=== PATIENT | female | born 2000 | race Caucasian/White ===

== ENCOUNTER 2023-12-28 21:48 | Emergency (ER) | payer OTHER ==
[2023-12-28 21:54] VITALS: RESP 18
[2023-12-29] MEDS: BACITRACIN OINT 1 EACH PACKET TOPICAL ONE (00:36)
[2023-12-29 00:37] LABS: Amorphous Sediment,Urine Rare /hpf; Appearance,Urine Clear (Clear); Bilirubin,Urine Negative (Negative); Blood,Urine Negative (Negative); Calcium Oxalate Crystals,Urine Occasional /hpf; Color,Urine Light Yellow; Glucose,Urine (UA) Negative (Negative); Ketones,Urine Negative (Negative); Leukocyte Esterase,Urine Large (Negative); Mucus,Urine Rare /hpf; Nitrite,Urine Negative (Negative); Protein,Urine Negative (Negative); RBC,Urine 3 /hpf (0-5); Specific Gravity,Urine 1.023 (1.001-1.035); Squamous Epithelial Cell,Urine 5 /hpf (0-4); Urobilinogen,Urine <2.0 mg/dL (<2.0); WBC,Urine 32 /hpf (0-5)
--- NOTE | 2023-12-29 01:20 | ED ---
Fall HPI - General Chief Complaint: Fall Stated Complaint: 20 weeks,R Hand/L arm laceration Time Seen by Provider: 12/28/23 22:10 Source: patient Mode of arrival: ambulatory - History of Present Illness Initial Comments: 23-year-old female currently 20 weeks with twins presenting with chief complaint of trip and fall. Patient was running away when she saw skunk when she tripped on uneven ground falling forward. States that she did not hit her stomach but then she fell forward she wanted to be sure that the fetuses were okay. She does have some scrapes to the left knee and right hand. Tetanus is up-to-date, last dose was last year. She has full range of motion of all the extremities, some soreness to the left knee but she is able to ambulate without difficulty. No pelvic pain or vaginal bleeding. No abdominal pain or dysuria. - Related Data Previous Rx's Medication Instructions Recorded Bacitracin Zinc Oint 1 applic TOPICAL BID #28 gm 12/29/23 Cephalexin [Keflex] 500 mg PO Q12HR 7 Days #14 cap 12/29/23 Allergies Allergy/AdvReac Type Severity Reaction Status Date / Time red dye AdvReac Unknown Verified 12/28/23 21:55 shellfish derived [Shellfish] AdvReac Anaphylaxis Verified 12/28/23 21:55 Review of Systems ROS Statement: Those systems with pertinent positive or pertinent negative responses have been documented in the HPI. ROS Other: All systems not noted in ROS Statement are negative. Past Medical History Additional Past Medical History / Comment(s): PCOS History of Any Multi-Drug Resistant Organisms: None Reported Past Surgical History: No Surgical Hx Reported Past Psychological History: No Psychological Hx Reported Smoking Status: Never smoker Past Alcohol Use History: None Reported Past Drug Use History: None Reported General Exam Limitations: no limitations General appearance: alert, in no apparent distress Head exam: Present: atraumatic, normocephalic, normal inspection Eye exam: Present: normal appearance, EOMI Neck exam: Present: normal inspection. Absent: meningismus Respiratory exam: Absent: respiratory distress Extremities exam: Present: full ROM Neurological exam: Present: alert, oriented X3 Psychiatric exam: Present: normal affect, normal mood Skin exam: Present: abrasion Course Vital Signs 12/28/23 12/29/23 21:49 03:39 Temperature 98.1 F 98.2 F Pulse Rate 102 H 91 Respiratory 18 18 Rate Blood Pressure 117/77 120/78 O2 Sat by Pulse 100 100 Oximetry Medical Decision Making - Medical Decision Making Was pt. sent in by a medical professional or institution ([facility], PASTE UP WORKER, urgent care, hospital, or assisted...) When possible be specific @ -No Did you speak to anyone other than the patient for history (EMS, parent, family, police, friend...)? What history was obtained from this source @ -History is supplemented by the patient's due to slight language b arrier Did you review nursing and triage notes (agree or disagree)? Why? @ -I reviewed and agree with nursing and triage notes Were old charts reviewed (outside hosp., previous admission, EMS record, old EKG, old radiological studies, urgent care reports/EKG's, assisted records)? Report findings @ -No old charts were reviewed Differential Diagnosis (chest pain, altered mental status, abdominal pain women, abdominal pain men, vaginal bleeding, weakness, fever, dyspnea, syncope, headache, dizziness, GI bleed, back pain, seizure, CVA, palpatations, mental health, musculoskeletal)? @ -Differential includes uncomplicated injury, threatened , hemorrhage, this is not an all-inclusive list EKG interpreted by me (3pts min.). @ -As above X-rays interpreted by me (1pt min.). @ -None done CT interpreted by me (1pt min.). @ -None done U/S interpreted by me (1pt. min.). @ -Ultrasound shows monochorionic monoamniotic twin live intrauterine gestation. heart rate of fetus today is 152 bpm. heart rate of fetus B is 155 bpm What testing was considered but not performed or refused? (CT, X-rays, U/S, labs)? Why? @ -None What meds were considered but not given or refused? Why? @ -None Did you discuss the management of the patient with other professionals (professionals i.e. [facility], PASTE UP WORKER, lab, RT, psych nurse, social security specialist, cloth pattern maker, teacher, mechanical engineering officer, keycase assembler)? Give summary @ -No Was smoking cessation discussed for >3mins.? @ -No Was critical care preformed (if so, how long)? @ -No Were there social determinants of health that impacted care today? How? (Homelessness, low income, unemployed, alcoholism, drug addiction, transportation, low edu. Level, literacy, decrease access to med. care, prison, rehab)? @ -No Was there de-escalation of care discussed even if they declined (Discuss DNR or withdrawal of care, Hospice)? DNR status @ -No What co-morbidities impacted this encounter? (DM, HTN, Smoking, COPD, CAD, Cancer, CVA, ARF, Chemo, Hep., AIDS, mental health diagnosis, sleep apnea, morbid obesity)? @ -None Was patient admitted / discharged? Hospital course, mention meds given and route, prescriptions, significant lab abnormalities, going to OR and other pertinent info. @ -23-year-old female currently 20 weeks with twins presenting for evaluation post trip and fall. She fell forward onto her front side, did not fall onto her abdomen but wanted to be evaluated. She does have some abrasions to the extremities. She is able to ambulate without difficulty. Her tetanus is up-to-date. Provided with bacitracin for her abrasions. Urine shows 32 WBCs, will be treated with Keflex for asymptomatic bacteria. Ultrasound shows twin intrauterine live gestation. Patient and are educated on today's findings. Follow-up with MANAGER OF PATIENT, they have an upcoming appointment scheduled. Discharged. Follow-up with PCP. Report back to ER with any new or worsening symptoms. Discussed return parameters and answered all questions. Patient conveyed verbal understanding and agreed to the plan. I discussed this case in detail with my attending Dr. Delgado Undiagnosed new problem with uncertain prognosis? @ -No Drug Therapy requiring intensive monitoring for toxicity (Heparin, Nitro, Insulin, Cardizem)? @ -No Were any procedures done? @ -No Diagnosis/symptom? @ -Twin , asymptomatic bacteria, abrasion Acute, or Chronic, or Acute on Chronic? @ -Acute Uncomplicated (without systemic symptoms) or Complicated (systemic symptoms)? @ -Uncomplicated Side effects of treatment? @ -No Exacerbation, Progression, or Severe Exacerbation? @ -No Poses a threat to life or bodily function? How? (Chest pain, [place], [place], pneumonia, PE, COPD, DKA, ARF, appy, cholecystitis, CVA, Diverticulitis, Homicidal, Suicidal, threat to staff... and all critical care pts) @ -Unlikely - Lab Data Lab Results 12/28/23 Range/Units 22:30 Urine Color Light Yellow Urine Appearance Clear (Clear) Urine pH 6.0 (5.0-8.0) Ur Specific [place] 1.023 (1.001-1.035) Urine Protein Negative (Negative) Urine Glucose (UA) Negative (Negative) Urine Ketones Negative (Negative) Urine Blood Negative (Negative) Urine Nitrite Negative (Negative) Urine Bilirubin Negative (Negative) Urine Urobilinogen <2.0 (<2.0) mg/dL Ur Leukocyte Esterase Large H (Negative) Urine RBC 3 (0-5) /hpf Urine WBC 32 H (0-5) /hpf Ur Squamous Epith Cells 5 H (0-4) /hpf Calcium Oxalate Crystal Occasional H (None) /hpf Amorphous Sediment Rare H (None) /hpf Urine Mucus Rare H (None) /hpf Disposition Clinical Impression: , twin, Abrasion, Asymptomatic bacteriuria Disposition: HOME SELF-CARE Condition: Good Additional Instructions: Follow up with your PCP and MANAGER OF PATIENT. Report back to ER with any new or worsening symptoms. Take medication as prescribed. Prescriptions: Bacitracin Zinc Oint 1 applic TOPICAL BID #28 gm Cephalexin [Keflex] 500 mg PO Q12HR 7 Days #14 cap Is patient prescribed a controlled substance at d/c from ED?: No Referrals: None,Stated [Primary Care Provider] - 1-2 days Time of Disposition: 03:31
--- NOTE | 2023-12-29 03:17 | US ---
EXAM: US Second or Third Trimester , Transabdominal CLINICAL HISTORY: ITS.REASON US Reason: fall TECHNIQUE: Real-time transabdominal obstetrical ultrasound of the maternal pelvis and a second or third trimester with image documentation. COMPARISON: None FINDINGS: Monochorionic monoamniotic twin live intrauterine gestation. The placenta is anterior without evidence of previa. The amniotic fluid index is within normal limits, measuring 14.58 cm. The cervix is long and closed, measuring 3.0 cm. Gestational age by prior dating at 19 weeks 6 days, which corresponds to an SANJU of 05/17/2024. FETUS A: Cephalic presentation on maternal left. BPD 4.62 cm, 20 weeks 0 days HC 16.39 cm, 19 weeks 1 day AC 14.15 cm, 19 weeks 4 days FL 2.87 cm, 18 weeks 6 days By this ultrasound, estimated gestational age is 19 weeks 1 day, corresponding to a sonographic SANJU of 05/22/2024. Estimated weight is 279.83 g +/-41.97 g which is at the 15th percentile. HC/AC ratio is 1.16 (normal range for this fetus is 1.09-1.26). FHR is 152 bpm. FETUS B: Breech presentation on maternal right. BPD 4.32 cm, 19 weeks 0 days HC 15.81 cm, 18 weeks 5 days AC 14.23 cm, 19 weeks 4 days FL 2.73 cm, 18 weeks 2 days By this ultrasound, estimated gestational age is 18 weeks 5 days, corresponding to a sonographic SANJU of 05/25/2024. Estimated weight is 267.38 g +/-40.11 g which is at the 9 percentile. HC/AC ratio is 1.11 (normal range for this fetus is 1.09-1.26). FHR is 155 bpm. IMPRESSION: Monochorionic monoamniotic twin live intrauterine gestation. heart rate of fetus A, is 152 bpm. heart rate of fetus B is 155 bpm.
[2023-12-29 03:41] VITALS: BP 120/78; PULSE 91; TEMP 98.2
== END 2023-12-29 03:40 | disposition home or self-care (01) ==
LOC: EC 21:48
CPT/HCPCS: 76805; 76810; 81001; 87086; 99284

== ENCOUNTER 2024-08-08 02:45 | Emergency (ER) | payer OTHER ==
[2024-08-08] MEDS: LACTATED RINGERS 1,000 ML IV ONE (03:19)
[2024-08-08] MEDS: ONDANSETRON 4 MG/2 ML VIAL IVP STA (03:19)
[2024-08-08] MEDS: HYDROmorphone 0.5 MG/0.5 ML SYRINGE IVP STA ×2 (03:19→08:08)
[2024-08-08 03:33] LABS: Basophils # (A) 0.06 10*3/uL (0.00-0.10); Basophils % (A) 0.6 %; Eosinophils # (A) 1.61 10*3/uL (0.04-0.35); Eosinophils % (A) 16.9 %; HCT 42.1 % (37.2-46.3); HGB 14.3 g/dL (12.0-15.0); Lymphocytes # (A) 4.18 10*3/uL (0.90-5.00); MCH 29.7 pg (27.0-32.0); MCV 87.3 fL (80.0-97.0); Mean Platelet Volume 9.2 fL (9.5-12.2); Monocytes # (A) 0.72 10*3/uL (0.20-1.00); Monocytes % (A) 7.6 %; Neutrophils # (A) 2.92 10*3/uL (1.80-7.70); Neutrophils % (A) 30.7 %; Platelet Count 237 10*3/uL (140-440); RBC 4.82 10*6/uL (4.10-5.20); WBC 9.51 10*3/uL (4.50-10.00)
[2024-08-08 03:37] LABS: Appearance,Urine Clear (Clear); Bilirubin,Urine Negative (Negative); Blood,Urine Negative (Negative); Color,Urine Yellow; Glucose,Urine (UA) Negative (Negative); Ketones,Urine Negative (Negative); Leukocyte Esterase,Urine Negative (Negative); Nitrite,Urine Negative (Negative); PH, Urine 5.5 (5.0-8.0); Protein,Urine Negative (Negative); Specific Gravity,Urine 1.029 (1.001-1.035); Urobilinogen,Urine <2.0 mg/dL (<2.0)
--- NOTE | 2024-08-08 03:38 | ED ---
General Adult HPI - General Source: patient, RN notes reviewed, old records reviewed Limitations: no limitations <Zaid Sanchez - Last Filed: 08/08/24 05:08> <Celso Jacome - Last Filed: 08/08/24 08:09> - General Chief complaint: Abdominal Pain Stated complaint: Abd pain Time Seen by Provider: 08/08/24 02:52 - History of Present Illness Initial comments: 24-year-old female presenting for evaluation of epigastric abdominal pain and nausea vomiting. Patient had 1 total episode of vomiting prior to arrival. She did report eating Occitan food earlier in the day. She states she has had some intermittent epigastric abdominal pain for the past 1 month. No prior history of gallbladder issues. She does not drink alcohol. (Zaid Sanchez) - Related Data Previous Rx's Medication Instructions Recorded Bacitracin Zinc Oint 1 applic TOPICAL BID #28 gm 12/29/23 Cephalexin [Keflex] 500 mg PO Q12HR 7 Days #14 cap 12/29/23 Allergies Allergy/AdvReac Type Severity Reaction Status Date / Time red dye AdvReac Unknown Verified 08/08/24 02:46 shellfish derived [Shellfish] AdvReac Anaphylaxis Verified 08/08/24 02:46 Review of Systems ROS Other: All systems not noted in ROS Statement are negative. <Zaid Sanchez - Last Filed: 08/08/24 05:08> ROS Other: All systems not noted in ROS Statement are negative. <Celso Jacome - Last Filed: 08/08/24 08:09> ROS Statement: Those systems with pertinent positive or pertinent negative responses have been documented in the HPI. Past Medical History Additional Past Medical History / Comment(s): PCOS History of Any Multi-Drug Resistant Organisms: None Reported Past Surgical History: No Surgical Hx Reported Past Psychological History: No Psychological Hx Reported Smoking Status: Never smoker Past Alcohol Use History: None Reported Past Drug Use History: None Reported <Zaid Sanchez - Last Filed: 08/08/24 05:08> General Exam Limitations: no limitations General appearance: alert, in no apparent distress Head exam: Present: atraumatic, normocephalic Eye exam: Present: normal appearance, PERRL ENT exam: Present: normal exam Neck exam: Present: normal inspection. Absent: tenderness, meningismus Respiratory exam: Present: normal lung sounds bilaterally. Absent: respiratory distress, wheezes Cardiovascular Exam: Present: regular rate, normal rhythm GI/Abdominal exam: Present: soft, tenderness (Very minimal epigastric tenderness, no right upper quadrant tenderness.). Absent: distended Neurological exam: Present: alert, oriented X3, CN II-XII intact. Absent: motor sensory deficit Psychiatric exam: Present: normal affect, normal mood Skin exam: Present: warm, dry, intact <Zaid Sanchez - Last Filed: 08/08/24 05:08> Course <Zaid Sanchez - Last Filed: 08/08/24 05:08> Vital Signs 08/08/24 08/08/24 08/08/24 02:47 03:35 05:32 Temperature 97.7 F Pulse Rate 82 74 71 Respiratory 18 18 18 Rate Blood Pressure 130/86 116/84 107/69 O2 Sat by Pulse 99 100 94 L Oximetry 08/08/24 07:34 Temperature Pulse Rate 63 Respiratory 18 Rate Blood Pressure 102/66 O2 Sat by Pulse 97 Oximetry - Reevaluation(s) Reevaluation #1: 08/08/24 04:20 Reevaluated, pain improved, no further vomiting. (Zaid Sanchez) Medical Decision Making - Lab Data Result diagrams: 08/08/24 03:14 08/08/24 03:14 <Zaid Sanchez - Last Filed: 08/08/24 05:08> - Lab Data Result diagrams: 08/08/24 03:14 08/08/24 03:14 <Celso Jacome - Last Filed: 08/08/24 08:09> - Medical Decision Making Was pt. sent in by a medical professional or institution (, PA, RUG DESIGNER, urgent care, hospital, or fci...) When possible be specific @ -No Did you speak to anyone other than the patient for history (EMS, parent, family, police, friend...)? What history was obtained from this source @ -No Did you review nursing and triage notes (agree or disagree)? Why? @ -I reviewed and agree with nursing and triage notes Were old charts reviewed (outside hosp., previous admission, EMS record, old EKG, old radiological studies, urgent care reports/EKG's, fci records)? Report findings @ -No old charts were reviewed Differential Abdominal Pain Women: Appendicitis, Cholecystitis, diverticulosis, ischemic bowel, pancreatitis, hepatitis, UTI, gastroenteritis, AAA, incarcerated hernia, bowel obstruction, constipation, inflammatory bowel, hepatitis, peptic ulcer disease, splenic infarction, perforated viscus, vulvitis, ovarian torsion, PID, kidney stone, placenta abruption, this is not meant to be an all-inclusive list EKG interpreted by me (3pts min.). @ -As above X-rays interpreted by me (1pt min.). @ -None done CT interpreted by me (1pt min.). @ -None done U/S interpreted by me (1pt. min.). @ -Ultrasound of the right upper quadrant has been ordered, results pending What testing was considered but not performed or refused? (CT, X-rays, U/S, labs)? Why? @ -None What meds were considered but not given or refused? Why? @ -None Did you discuss the management of the patient with other professionals (professionals i.e. , PA, RUG DESIGNER, lab, RT, psych nurse, psychologist social, morgue attendant, teacher, artillery officer, medical case worker)? Give summary @ -No Was smoking cessation discussed for >3mins.? @ -No Was critical care preformed (if so, how long)? @ -No Were there social determinants of health that impacted care today? How? (Homelessness, low income, unemployed, alcoholism, drug addiction, transportation, low edu. Level, literacy, decrease access to med. care, long term, rehab)? @ -No Was there de-escalation of care discussed even if they declined (Discuss DNR or withdrawal of care, Hospice)? DNR status @ -No What co-morbidities impacted this encounter? (DM, HTN, Smoking, COPD, CAD, Canc er, CVA, ARF, Chemo, Hep., AIDS, mental health diagnosis, sleep apnea, morbid obesity)? @ -None Was patient admitted / discharged? Hospital course, mention meds given and route, prescriptions, significant lab abnormalities, going to OR and other pertinent info. @ -24-year-old female with epigastric pain, nausea vomiting. Laboratory test including CBC, CMP, lipase, urinalysis is unremarkable. Ultrasound has been ordered to evaluate the gallbladder and biliary system. These results are pending. Patient care signed out at shift change to Dr. Jacome awaiting results and reevaluation. (Zaid Sanchez) Patient presents with abdominal pain. This is associate with nausea and vomiting. She has been having on and off again epigastric abdominal pain for the last 1 month and somewhat worsened yesterday with 1 episode of emesis. Presented for further evaluation. Signed out to me pending results of ultrasound. Laboratory studies so far all within acceptable limits. Gallbladder ultrasound as interpreted by myself negative for any obvious acute process. No evidence of cholecystitis or cholelithiasis. I updated the patient. She expressed understanding. She will be discharged home at this time. Given GI follow-up. Strict return precautions discussed. Patient given starter pack of Tylenol 3 as well as Zofran. We did review the risks for both medications and she expressed understanding. She will not breast-feed while on these medications. Recommended at least a 1 day washout period where she pumps and dump the breastmilk after completing medications. She was in agreement this plan. Strict return precautions discussed. Recommended obtaining [id number] Tums for additional acid reflux pain control. I instructed the patient to follow up with their PCP in the next 1-3 days. I provided contact information for follow up with gastroenterology. I explained that the patient should return to the emergency department if they experience any worsening symptoms. Strict return precautions were discussed with the patient. The patient expressed understanding of these instructions. I answered all questions that the patient had. The patient was discharged home in good condition with their prescriptions and follow up information. Diagnosis/symptom? @ -Abdominal pain of unknown etiology, nausea and vomiting Acute, or Chronic, or Acute on Chronic? @ -Acute Uncomplicated (without systemic symptoms) or Complicated (systemic symptoms)? @ -Uncomplicated Side effects of treatment? @ -None Exacerbation, Progression, or Severe Exacerbation] @ -No Poses a threat to life or bodily function? @ -Unlikely at this time (Celso Jacome) - Lab Data Lab Results 08/08/24 08/08/24 08/08/24 Range/Units 03:14 03:14 03:14 WBC 9.51 (4.50-10.00) 10*3/uL RBC 4.82 (4.10-5.20) 10*6/uL Hgb 14.3 (12.0-15.0) g/dL Hct 42.1 (37.2-46.3) % MCV 87.3 (80.0-97.0) fL MCH 29.7 (27.0-32.0) pg MCHC 34.0 (32.0-37.0) g/dL Plt Count 237 (140-440) 10*3/uL MPV 9.2 L (9.5-12.2) fL Immature Gran % (Auto) 0.2 % Neutrophils % 30.7 % Lymphocytes % 44.0 % Monocytes % 7.6 % Eosinophils % 16.9 % Basophils % 0.6 % Immature Gran # 0.02 (0.00-0.04) 10*3/uL Neutrophils # 2.92 (1.80-7.70) 10*3/uL Lymphocytes # 4.18 (0.90-5.00) 10*3/uL Monocytes # 0.72 (0.20-1.00) 10*3/uL Eosinophils # 1.61 H (0.04-0.35) 10*3/uL Basophils # 0.06 (0.00-0.10) 10*3/uL PT 10.4 (10.0-12.5) sec INR 0.9 (<1.2) APTT 24.3 (22.0-30.0) sec Sodium 141 (137-145) mmol/L Potassium 3.9 (3.5-5.1) mmol/L Chloride 106 (98-107) mmol/L Carbon Dioxide 24 (22-30) mmol/L Anion Gap 11 mmol/L BUN 13 (7-17) mg/dL Creatinine 0.63 (0.52-1.04) mg/dL Est GFR (CKD-EPI)AfAm >90 (>60 ml/min/1.73 sqM) Est GFR (CKD-EPI)NonAf >90 (>60 ml/min/1.73 sqM) Glucose 98 (74-99) mg/dL Plasma Lactic Acid Yang (0.7-2.0) mmol/L Calcium 9.4 (8.4-10.2) mg/dL Total Bilirubin 0.5 (0.2-1.3) mg/dL AST 27 (14-36) U/L ALT 30 (4-34) U/L Alkaline Phosphatase 100 (38-126) U/L Total Protein 7.3 (6.3-8.2) g/dL Albumin 4.4 (3.5-5.0) g/dL Amylase 102 (30-110) U/L Lipase 111 (23-300) U/L Urine Color Urine Appearance (Clear) Urine pH (5.0-8.0) Ur Specific [place] (1.001-1.035) Urine Protein (Negative) Urine Glucose (UA) (Negative) Urine Ketones (Negative) Urine Blood (Negative) Urine Nitrite (Negative) Urine Bilirubin (Negative) Urine Urobilinogen (<2.0) mg/dL Ur Leukocyte Esterase (Negative) Urine HCG, Qual (Not Detectd) 08/08/24 08/08/24 08/08/24 Range/Units 03:14 03:20 03:20 WBC (4.50-10.00) 10*3/uL RBC (4.10-5.20) 10*6/uL Hgb (12.0-15.0) g/dL Hct (37.2-46.3) % MCV (80.0-97.0) fL MCH (27.0-32.0) pg MCHC (32.0-37.0) g/dL Plt Count (140-440) 10*3/uL MPV (9.5-12.2) fL Immature Gran % (Auto) % Neutrophils % % Lymphocytes % % Monocytes % % Eosinophils % % Basophils % % Immature Gran # (0.00-0.04) 10*3/uL Neutrophils # (1.80-7.70) 10*3/uL Lymphocytes # (0.90-5.00) 10*3/uL Monocytes # (0.20-1.00) 10*3/uL Eosinophils # (0.04-0.35) 10*3/uL Basophils # (0.00-0.10) 10*3/uL PT (10.0-12.5) sec INR (<1.2) APTT (22.0-30.0) sec Sodium (137-145) mmol/L Potassium (3.5-5.1) mmol/L Chloride (98-107) mmol/L Carbon Dioxide (22-30) mmol/L Anion Gap mmol/L BUN (7-17) mg/dL Creatinine (0.52-1.04) mg/dL Est GFR (CKD-EPI)AfAm (>60 ml/min/1.73 sqM) Est GFR (CKD-EPI)NonAf (>60 ml/min/1.73 sqM) Glucose (74-99) mg/dL Plasma Lactic Acid Yang 1.3 (0.7-2.0) mmol/L Calcium (8.4-10.2) mg/dL Total Bilirubin (0.2-1.3) mg/dL AST (14-36) U/L ALT (4-34) U/L Alkaline Phosphatase (38-126) U/L Total Protein (6.3-8.2) g/dL Albumin (3.5-5.0) g/dL Amylase (30-110) U/L Lipase (23-300) U/L Urine Color Yellow Urine Appearance Clear (Clear) Urine pH 5.5 (5.0-8.0) Ur Specific [place] 1.029 (1.001-1.035) Urine Protein Negative (Negative) Urine Glucose (UA) Negative (Negative) Urine Ketones Negative (Negative) Urine Blood Negative (Negative) Urine Nitrite Negative (Negative) Urine Bilirubin Negative (Negative) Urine Urobilinogen <2.0 (<2.0) mg/dL Ur Leukocyte Esterase Negative (Negative) Urine HCG, Qual Not Detected (Not Detectd) Disposition <Zaid Sanchez - Last Filed: 08/08/24 05:08> Is patient prescribed a controlled substance at d/c from ED?: Yes When asked, does pt state using other controlled substances?: No If prescribed controlled substance>3 days was MAPS reviewed?: Prescribed <3 Days If opioid is for acute pain is fill amount 7 days or less?: Yes If Rx opioid, was Start Talking consent form obtained?: Yes Time of Disposition: 08:09 <Ceslo Jacome - Last Filed: 08/08/24 08:09> Clinical Impression: Nausea and vomiting, Abdominal pain of unknown etiology Disposition: HOME SELF-CARE Condition: Good Instructions (If sedation given, give patient instructions): Abdominal Pain (ED), Acute Nausea and Vomiting (ED) Referrals: None,Stated [Primary Care Provider] - 1-2 days Lesli Scruggs MD [STAFF PHYSICIAN] - 1-2 days Forms: [facility] PCPs
[2024-08-08 03:47] LABS: ALT 30 U/L (4-34); AST 27 U/L (14-36); African American GFR (CKD) >90 (>60 ml/min/1.73 sqM); Albumin 4.4 g/dL (3.5-5.0); Alkaline Phosphatase 100 U/L (38-126); Amylase 102 U/L (30-110); Anion Gap 11 mmol/L; Blood Urea Nitrogen 13 mg/dL (7-17); Calcium 9.4 mg/dL (8.4-10.2); Carbon Dioxide 24 mmol/L (22-30); Chloride 106 mmol/L (98-107); Glucose 98 mg/dL (74-99); Lipase 111 U/L (23-300); Non-African American GFR(CKD) >90 (>60 ml/min/1.73 sqM); Potassium 3.9 mmol/L (3.5-5.1); Sodium 141 mmol/L (137-145); Total Bilirubin 0.5 mg/dL (0.2-1.3); Total Protein 7.3 g/dL (6.3-8.2)
[2024-08-08 04:02] LABS: INR 0.9 (<1.2); Partial Thromboplastin Time 24.3 sec (22.0-30.0); Prothrombin Time 10.4 sec (10.0-12.5)
[2024-08-08] MEDS: PANTOPRAZOLE 40 MG/10 ML VIAL IVP STA (05:47)
--- NOTE | 2024-08-08 07:52 | US ---
EXAMINATION TYPE: US gallbladder DATE OF EXAM: 08/08/2024 COMPARISON: NONE CLINICAL INDICATION: Female, 24 years old with history of Epigastric abdominal pain, nausea vomiting; Epigastric pain. TECHNIQUE: Grayscale and color Doppler imaging of the right upper quadrant was performed. FINDINGS: EXAM MEASUREMENTS: Liver Length: 16.4 cm Gallbladder Wall: 0.1 cm CBD: 0.3 cm Right Kidney: 11.9 x 5.9 x 5.1 cm Pancreas: Limited pancreatic head Liver: wnl Gallbladder: No stones or wall thickening seen Evidence for sonographic Kurtz's sign: neg CBD: wnl Right Kidney: No hydronephrosis or masses seen IMPRESSION: No evidence for acute process. [facility], , 08/08/2024 7:49 AM
[2024-08-08] MEDS: ONDANSETRON 4 MG ODT STARTER PACK 2 TAB BTL PO STA (08:10)
[2024-08-08] MEDS: ACET/COD 300 MG/30 MG STARTER PACK 6 TAB BTL PO STA (08:10)
[2024-08-08 08:14] VITALS: BP 113/76; PULSE 98; RESP 16; TEMP 98.1
== END 2024-08-08 08:56 | disposition home or self-care (01) ==
LOC: EC 02:45
DX: R10.13 Epigastric pain (principal); R11.2 Nausea with vomiting, unspecified; Z91.013 Allergy to seafood; Z91.041 Radiographic dye allergy status
CPT/HCPCS: 36415; 80053; 82150; 83605; 83690; 85025; 85610; 85730; 81003; 81025; 76705; 99284; 96374; 96375; 96376; 96361; J2405; S0119; J1171; J2470